=== PATIENT | male | born 1965 | race Hispanic/Latino ===

== ENCOUNTER 2017-12-19 11:57 | Inpatient (IN) | payer MEDICAID ==
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
[2017-12-19 15:09] LABS: BASO % 0.5 % (0.0-2.0); EOS % 0.2 % (0.0-4.0); HEMOGLOBIN 12.8 g/dL (12.0-18.0); LYMPH # 0.8 K/uL (1.0-4.3); LYMPH % 13.5 % (20.0-40.0); MEAN CELL VOLUME 101.1 fL (80.0-94.0); MEAN CORPUSCULAR HEMOGLOBIN 34.4 pg (27.0-31.0); MEAN PLATELET VOLUME 7.3 fL (7.2-11.7); MONO # 0.8 K/uL (0.0-0.8); MONO % 13.5 % (0.0-10.0); NEUT # 4.5 K/uL (1.8-7.0); NEUT % 72.3 % (50.0-75.0); NRBC % 0.1 % (0.0-2.0); RBC 3.73 Mil/uL (4.40-5.90); RED CELL DISTRIBUTION WIDTH 18.4 % (11.5-14.5); WHITE BLOOD COUNT 6.2 K/uL (4.8-10.8)
[2017-12-19 15:22] LABS: URINE BILIRUBIN NEGATIVE (NEGATIVE); URINE BLOOD NEGATIVE (NEGATIVE); URINE CLARITY Clear (Clear); URINE COLOR Yellow (YELLOW); URINE GLUCOSE (UA) NORMAL (Normal); URINE LEUKOCYTE ESTERASE NEG Leu/uL (Negative); URINE PROTEIN 1+ mg/dL (NEGATIVE)
[2017-12-19 15:22] LABS: ALB/GLOB RATIO 1.5 (1.0-2.1); ALBUMIN 4.3 g/dL (3.5-5.0); ALT/SGPT 120 U/L (21-72); AST/SGOT 151 U/L (17-59); BLOOD UREA NITROGEN 14 mg/dL (9-20); CALCIUM 8.8 mg/dl (8.6-10.4); GFR NON-AFRICAN AMERICAN > 60
[2017-12-19 16:06] LABS: BARBITURATES, UR NEGATIVE (NEGATIVE); BENZODIAZEPINES, UR NEGATIVE (NEGATIVE); OPIATES, UR NEGATIVE (NEGATIVE); PHENCYCLIDINE, UR NEGATIVE (NEGATIVE)
--- NOTE | 2017-12-19 16:06 | PCM.BM ---
<AnastacioRosa - Last Filed: 12/19/17 16:05> Treatment Plan Problems - Problems identified on initial assessmt Potential for alcohol withdrawal Date Initiated: 12/19/17 Time Initiated: 16:05 Assessment reference: NA Status: Active Treatment assets and liabiliti Patient Assests: ADL independent, negotiates basic needs, cognitively intact Patient Liabilities: substance abuse (ETOH) - Milieu Protocol Maintain good personal hygiene: daily Encourage regular showers, daily Remind patient to perform daily oral care, daily Assist patient to perform ADL's Conduct patient checks and document Observation sheet: Q15 minutes Maintain personal safety: every shift Educate patient to report safety concerns to staff, every shift Monitor environment for contraband/sharps Medication safety: Monitor for expected outcome, potential side effects: every shift, Assess barriers to learning: every shift, Assess readiness for medication education: every shift <Becki Allred - Last Filed: 12/22/17 11:22> Family Contact Family involvement: Famliy/SO not involved - Goals for Treatment Patient goals for treatment: Complete detox and transition to IOP. Discharge/Continuing Care - Education Needs Education Needs: Patient Medication, Patient Diagnosis/Disease Process, Patient Coping Skills, Patient Anger Management skills, Patient Placement options, Patient Community resources - Discharge Discharge Criteria: No longer exhibiting s/s of withdrawal, Reduction of target symptoms Discharge to:: Home, With Family - Treatment Team Participation Patient/Family/SO Statement: 12/22/17 11:22 "I'm, interested in IOP after detox..." Discussed with Family/SO: No Was Patient/Family/SO present at Treatment Team Meeting: Yes
[2017-12-19] MEDS: Bacitracin Ointment 30 GM TUBE TOP SCH (17:48)
[2017-12-20] MEDS: Multiple Vitamins Tab PO SCH (10:04)
[2017-12-20] MEDS: Bacitracin Ointment 30 GM TUBE TOP SCH ×2 (10:08→17:31)
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
[2017-12-21] MEDS: Multiple Vitamins Tab PO SCH (09:25)
[2017-12-21] MEDS: Bacitracin Ointment 30 GM TUBE TOP SCH ×2 (09:42→19:02)
--- NOTE | 2017-12-21 15:33 | PCM.PYCHPN ---
Psychiatric Progress Note - Psychiatric Progress Note Patient seen today, length of contact: 17 min Patient Chief Complaint: "So so, my shoulder hurts" Problems Identified/Issues Discussed: The pt is seen, chart reviewed, case discussed with staff. Support and psychoeducation given, CBT and PR used briefly No new symptoms reported, improving slowly and needs more time No SEs from medications, risks discussed. After care discussed Medication Change: Yes (detox changes daily) Medical Record Reviewed: Yes Mental Status Examination - Cognitive Function Orientation: Person, Place, Situation, Time Memory: Intact Attention: WNL Concentration: Poor Association: WNL Fund of Knowledge: WNL - Mood Mood: Anxious - Affect Affect: Constricted - Formal Thought Process Formal Thought Process: No Impairment - Suicidal Ideation Suicidal Ideation: No - Homicidal Ideation Homicidal Ideation: No Goal/Treatment Plan - Goal/Treatment Plan Need for Continued Stay: Discharge may exacerbated symptoms, Severe functional impairment Progress Toward Problem(s) and Goals/Treatment Plan: Continue medications Support and psychoeducation daily Attend groups and activities daily After care planning by counselors PT for shoulder Estimated Date of D/C: 12/24/17
[2017-12-21] MEDS: Trolamine Salicylate 10% Cream (85 gm) TOP PRN (17:33)
[2017-12-22] MEDS: Trolamine Salicylate 10% Cream (85 gm) TOP PRN (09:42)
[2017-12-22] MEDS: Multiple Vitamins Tab PO SCH (09:43)
[2017-12-22] MEDS: Bacitracin Ointment 30 GM TUBE TOP SCH ×2 (09:45→18:08)
[2017-12-23] MEDS: Bacitracin Ointment 30 GM TUBE TOP SCH ×2 (10:04→18:12)
[2017-12-23] MEDS: Multiple Vitamins Tab PO SCH (10:07)
[2017-12-23] MEDS: Trolamine Salicylate 10% Cream (85 gm) TOP PRN (11:46)
--- NOTE | 2017-12-23 12:48 | PCM.PYCHPN ---
Psychiatric Progress Note - Psychiatric Progress Note Patient seen today, length of contact: 15 min Patient Chief Complaint: "Shoulder still achy" Problems Identified/Issues Discussed: The pt is seen, chart reviewed, case discussed with staff. The pt is compliant with medications and reports no side-effects. Symptoms are improving but needs more time to stabilize. Pt attends groups and activities. Support given, psycho-education provided. After care discussed. Medication Change: Yes (detox changes daily) Medical Record Reviewed: Yes Mental Status Examination - Cognitive Function Orientation: Person, Place, Situation, Time Memory: Intact Attention: WNL Concentration: Poor Association: WNL Fund of Knowledge: WNL - Mood Mood: Anxious - Affect Affect: Constricted - Formal Thought Process Formal Thought Process: No Impairment - Suicidal Ideation Suicidal Ideation: No - Homicidal Ideation Homicidal Ideation: No Goal/Treatment Plan - Goal/Treatment Plan Need for Continued Stay: Discharge may exacerbated symptoms, Severe functional impairment Progress Toward Problem(s) and Goals/Treatment Plan: Continue medications Support and psychoeducation daily Attend groups and activities daily After care planning by counselors PT for shoulder started Exercises showed Estimated Date of D/C: 12/24/17
[2017-12-24] MEDS: Multiple Vitamins Tab PO SCH (09:29)
[2017-12-24] MEDS: Trolamine Salicylate 10% Cream (85 gm) TOP PRN (09:30)
[2017-12-24] MEDS: Bacitracin Ointment 30 GM TUBE TOP SCH (09:30)
[2017-12-24 17:39] VITALS: BP 119/86; PULSE 88; RESP 18; TEMP 98.2; O2SAT 97
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
== END 2017-12-24 18:32 | disposition home or self-care (01) | DRG 773 ==
LOC: C.ER 11:57 → C.7D 13:35 → C.9E 15:00 → C.7D 15:56
PROVIDERS: ADMIT Psychiatry & Neurology Psychiatry; ATTEND Psychiatry & Neurology Psychiatry
PROC: GZ56ZZZ Individual Psychotherapy, Supportive (ICD-10-PCS; principal; 2017-12-19)
DX: F10.230 Alcohol dependence with withdrawal, uncomplicated (principal); F11.10 Opioid abuse, uncomplicated; Z96.641 Presence of right artificial hip joint; S42.302D Unspecified fracture of shaft of humerus, left arm, subsequent encounter for fracture with routine healing; V19.9XXA Pedal cyclist (driver) (passenger) injured in unspecified traffic accident, initial encounter; F14.10 Cocaine abuse, uncomplicated; Y90.9 Presence of alcohol in blood, level not specified